=== PATIENT | male | born 1970 | race African-American/Black ===

== ENCOUNTER 2018-09-09 18:24 | Emergency (ER) | payer SELFPAY ==
[~2018-09-09] VITALS: Ht 165.1 cm; Wt 89.4 kg
[2018-09-09] MEDS ORDERED: CEFTRIAXONE SOD 1 GM VIAL IM ONE (19:00)
[2018-09-09] MEDS ORDERED: TYLENOL WITH C1 EACH PO (19:11)
[2018-09-09] MEDS ORDERED: AMOXICILLIN500 MG PO (19:11)
[2018-09-09 21:23] VITALS: BP 159/94
== END 2018-09-09 19:25 | disposition home or self-care (01) ==
LOC: FSED 18:24
DX: K08.89 Other specified disorders of teeth and supporting structures (principal); K04.7 Periapical abscess without sinus
CPT/HCPCS: 41800; 99282; J0696

== ENCOUNTER 2021-03-10 21:59 | Emergency (ER) | payer OTHER ==
[~2021-03-10] VITALS: Ht 165.1 cm; Wt 97.5 kg
[~2021-03-10 21:59] MED LIST: AMOXICILLIN500 MG PO; TYLENOL WITH C1 EACH PO
[2021-03-10] MEDS ORDERED: IBUPROFEN 600 MG TAB PO STA (22:28)
[2021-03-10] MEDS ORDERED: AMOXICILLIN/CLAVULANATE K 875 MG TAB PO STA (22:30)
[2021-03-10] MEDS ORDERED: DIPHTH/TETANUS/ACEL. PERTUSSIS 0.5 ML SYR IM ONE (22:30)
[2021-03-10] MEDS ORDERED: IBUPROFEN 600 MG TAB ONE (22:39)
[2021-03-10] MEDS ORDERED: AMOXICILLIN/CLAVULANATE K 875 MG TAB ONE (22:39)
[2021-03-10] MEDS ORDERED: TETANUS/DIPHTHERIA TOX ADULT 0.5 ML SYR ONE (22:40)
[2021-03-10] MEDS ORDERED: CEPHALEXIN500 MG PO (23:29)
== END 2021-03-10 23:45 | disposition home or self-care (01) ==
LOC: FSED 22:04
DX: S51.011A Laceration without foreign body of right elbow, initial encounter (principal); W01.0XXA Fall on same level from slipping, tripping and stumbling without subsequent striking against object, initial encounter; Y93.01 Activity, walking, marching and hiking; Y92.89 Other specified places as the place of occurrence of the external cause; I10 Essential (primary) hypertension; E11.9 Type 2 diabetes mellitus without complications; E78.5 Hyperlipidemia, unspecified
CPT/HCPCS: 90714; 99283